=== PATIENT | male | born 1985 | race African-American/Black ===

== ENCOUNTER 2017-05-19 16:46 | Emergency (ER) | payer OTHER ==
[~2017-05-19] VITALS: Ht 185.4 cm; Wt 77.1 kg
[2017-05-19 17:19] VITALS: BP 136/84
--- NOTE | 2017-05-19 17:24 | PHYS DOC ---
Past Medical History Past Medical History: No Pertinent History Past Surgical History: No Surgical History Alcohol Use: Occasionally Drug Use: None Adult General Chief Complaint Chief Complaint: TOE PROBLEM HPI HPI Patient is a 31 year old left foot pain for 2 days. He states that he had a sore spot on the bottom of the toe just beneath the great toe. This become more painful the last 2 days. Is not affected his range of motion. Review of Systems Review of Systems Constitutional: Denies fever or chills [] Eyes: Denies change in visual acuity, redness, or eye pain [] HENT: Denies nasal congestion or sore throat [] Respiratory: Denies cough or shortness of breath [] Cardiovascular: No additional information not addressed in HPI [] GI: Denies abdominal pain, nausea, vomiting, bloody stools or diarrhea [] : Denies dysuria or hematuria [] Musculoskeletal: Foot pain Integument: Denies rash or skin lesions [] Neurologic: Denies headache, focal weakness or sensory changes [] Endocrine: Denies polyuria or polydipsia [] Allergies Allergies Allergies Coded Allergies Type Severity Reaction Last Updated Verified No Known Drug Allergies 02/02/14 No Physical Exam Physical Exam Skin: Plantar aspect left foot proximal to the great toe, there is a 1 cm corn. There is no erythema. No fluctuance. Is mildly tender to palpate. Current Patient Data Vital Signs Vital Signs Date Time Temp Pulse Resp B/P (MAP) Pulse Ox O2 Delivery O2 Flow Rate FiO2 05/19/17 17:19 98.1 72 18 99 Room Air 98.1 EKG EKG [] Radiology/Procedures Radiology/Procedures [] Course & Med Decision Making Course & Med Decision Making Pertinent Labs and Imaging studies reviewed. (See chart for details) [] Dragon Disclaimer Dragon Disclaimer This electronic medical record was generated, in whole or in part, using a voice recognition dictation system. Departure Departure Impression: Primary Impression: [place] of foot Disposition: 01 HOME, SELF-CARE Condition: STABLE Referrals: NO PCP (PCP) Patient Instructions: [facility]s [facility] Additional Instructions: Dr. Dietrcih corn foot pads LACIE PARR APRN May 19, 2017 17:24
== END 2017-05-19 17:26 | disposition home or self-care (01) ==
LOC: ER 16:46
DX: L84 Corns and callosities (principal)
CPT/HCPCS: 99281